=== PATIENT | female | born 2005 | race Caucasian/White ===

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

== ENCOUNTER 2023-01-08 11:22 | Emergency (ER) | payer SELFPAY ==
[2023-01-08 15:39] LABS: APPEARANCE,URINE CLEAR; BILIRUBIN,URINE NEGATIVE (NEGATIVE); COLOR,URINE YELLOW; GLUCOSE,URINE NEGATIVE (NEGATIVE); KETONES,URINE TRACE mg/dL (NEGATIVE); LEUKOCYTE ESTERASE,URINE TRACE (NEGATIVE); NITRITE,URINE NEGATIVE (NEGATIVE); OCCULT BLOOD,URINE NEGATIVE (NEGATIVE); PH,URINE 6.5 (5.0-8.0); PROTEIN,URINE NEGATIVE (NEGATIVE); UROBILINOGEN,URINE 0.2 EU/dL (<2.0)
[2023-01-08 15:47] LABS: BACTERIA,URINE FEW (NEGATIVE); EPITHELIAL CELLS,URINE FEW (NONE-FEW); RBC,URINE NONE SEEN (0-2/HPF)
[2023-01-08 16:43] VITALS: BP 120/75; PULSE 75
== END 2023-01-08 16:42 | disposition home or self-care (01) ==
LOC: MW.ED 11:22
DX: K59.00 Constipation, unspecified (principal); Z88.0 Allergy status to penicillin; Z88.1 Allergy status to other antibiotic agents
CPT/HCPCS: 81001; 81025; 87086; 99283; 99284

== ENCOUNTER 2023-12-09 15:52 | Emergency (ER) | payer SELFPAY ==
[2023-12-09] MEDS: Ondansetron 4 MG Tab.DIS PO ONE (16:39)
[2023-12-09] MEDS: Famotidine 20 MG Tab PO ONE (16:39)
[2023-12-09] MEDS: Acetaminophen/HYDROcodone 325-5 MG Tab PO ONE (16:39)
[2023-12-09 16:46] LABS: BASOPHILS ABSOLUTE AUTO 0.02 K/uL (0.00-0.20); BASOPHILS PERCENT AUTO 0.2 % (0.0-1.0); EOSINOPHILS ABSOLUTE AUTO 0.04 K/uL (0.00-0.45); EOSINOPHILS PERCENT AUTO 0.3 % (0.0-6.0); HEMATOCRIT 41.2 % (37.0-47.0); HEMOGLOBIN 14.4 g/dL (12.0-16.0); IMMATURE GRAN ABSOLUTE AUTO 0.03 K/uL (0.00-0.05); IMMATURE GRAN PERCENT AUTO 0.3 % (0.0-0.4); LYMPHOCYTES ABSOLUTE AUTO 1.48 K/uL (1.00-4.80); LYMPHOCYTES PERCENT AUTO 12.8 % (24.0-44.0); MEAN CORPUSCULAR HEMOGLOBIN 30.8 pg (28.0-32.0); MEAN CORPUSCULAR VOLUME 88.2 fL (83.0-99.0); MEAN PLATELET VOLUME 10.2 fL (9.4-12.3); MONOCYTES ABSOLUTE AUTO 0.55 K/uL (0.00-0.80); MONOCYTES PERCENT AUTO 4.8 % (0.0-8.0); NEUTROPHILS ABSOLUTE AUTO 9.45 K/uL (1.80-7.70); NEUTROPHILS PERCENT AUTO 81.6 % (41.0-71.0); PLATELET COUNT,PLT 244 K/uL (150-400); RED BLOOD CELL COUNT 4.67 M/uL (4.10-5.30); WHITE BLOOD CELL COUNT,WBC 11.57 K/uL (3.9-11.3)
[2023-12-09 17:16] LABS: A/G RATIO 1.2 (0.9-1.6); BILIRUBIN TOTAL 0.4 mg/dL (0.2-1.0); CARBON DIOXIDE,CO2 29.3 mmol/L (21.0-32.0); CREATININE 0.8 mg/dL (0.6-1.0); EST CRCL DRUG DOSING (CG) 100.94 mL/min; POTASSIUM,K 3.7 mmol/L (3.5-5.1); PROTEIN TOTAL,TP 7.3 g/dL (6.4-8.2)
[2023-12-09 18:00] VITALS: BP 130/80; PULSE 76
== END 2023-12-09 17:59 | disposition home or self-care (01) ==
LOC: MW.ED 15:52
DX: R10.11 Right upper quadrant pain (principal); R10.13 Epigastric pain; Z79.899 Other long term (current) drug therapy; Z88.0 Allergy status to penicillin; Z88.8 Allergy status to other drugs, medicaments and biological substances
CPT/HCPCS: 36415; 76705; 80053; 83690; 84703; 85025; 99284; A9270; 99283

== ENCOUNTER 2024-12-26 20:48 | Emergency (ER) | payer SELFPAY | END 2024-12-26 21:01 | disposition left against medical advice (07) | LOC: MW.ED 20:48 | DX: Z53.21 Procedure and treatment not carried out due to patient leaving prior to being seen by health care provider (principal) ==